=== PATIENT | male | born 1985 | race Caucasian/White ===

== ENCOUNTER 2016-09-29 17:17 | Emergency (ER) | payer SELFPAY ==
[~2016-09-29] VITALS: Ht 175.3 cm; Wt 54.4 kg
[2016-09-29] MEDS ORDERED: GUAI600T43 PO (17:38)
--- NOTE | 2016-09-29 17:53 | ED General ---
General Chief Complaint: Cough/Cold/Flu Symptoms Stated Complaint: PRODUCTIVE COUGH/BURNING IN CHEST Nursing Triage Note: Pt. advised he has been expriencing a cough/congestion since thursday that has become progressively worse. He advises he has been coughing up yellow sputum. Nursing Sepsis Screen: No Definite Risk Source of Information: Patient Exam Limitations: No Limitations History of Present Illness Time Seen by Provider: 17:21 Initial Comments This 31-year-old gentleman presents to the emergency room with complaints of chest congestion, chest burning, productive cough, and chills without fever. He did not receive an influenza immunization this year. Symptoms have been present for 4 days. He also has a right earache. Allergies and Home Medications Allergies Coded Allergies: latex (Unverified Allergy, Intermediate, 09/29/16) Uncoded Allergies: APPLES (Allergy, Intermediate, 09/29/16) Home Medications Albuterol Sulfate 8.5 Gm Hfa.aer.ad #1 1-4 PUFF IH Q4H PRN PRN SHORTNESS OF BREATH Prescribed by: PADMA PACK on 09/29/16 180 Azithromycin 250 Mg Tablet #6 250 MG PO UD TAKE 2 TABLETS ON DAY ONE THEN TAKE 1 TABLET DAILY FOR FOUR MORE DAYS Prescribed by: PADMA PACK on 09/29/16 180 Guaifenesin 600 Mg Tab.er.12h 600 MG PO (Reported) Prednisone 20 Mg Tab #4 20 MG PO DAILY Prescribed by: PADMA PACK on 09/29/16 180 Constitutional: see HPI EENTM: see HPI Respiratory: see HPI Cardiovascular: no symptoms reported Gastrointestinal: no symptoms reported Genitourinary: no symptoms reported Musculoskeletal: no symptoms reported Skin: no symptoms reported Psychiatric/Neurological: No Symptoms Reported Hematologic/Lymphatic: No Symptoms Reported Past Nrehdga-Bsuyfq-[place] Hx Patient Social History Smoking Status: Never a Smoker Recent Foreign Travel: No Contact w/Someone Who Travel: No Recent Infectious Disease Expo: Yes (advises his neighbor has been ill) Recent Hopitalizations: No Immunizations Up To Date PED Vaccines UTD: Yes Seasonal Allergies Seasonal Allergies: Yes Surgeries HX Surgeries: Yes (lymph glands in groin and neck removed) Surgeries: Tonsillectomy Respiratory Hx Respiratory Disorders: No Cardiovascular Hx Cardiac Disorders: No Neurological Hx Neurological Disorders: No Reproductive System Hx Reproductive Disorders: No Genitourinary Hx Genitourinary Disorders: No Gastrointestinal Hx Gastrointestinal Disorders: No Musculoskeletal Hx Musculoskeletal Disorders: No Endocrine Hx Endocrine Disorders: No HEENT HX ENT Disorders: No Cancer Hx Cancer: No Psychosocial Hx Psychiatric Problems: No Integumentary HX Skin/Integumentary Disorder: No Family Medical History Significant Family History: No Pertinent Family Hx Physical Exam Vital Signs Vital Sign - Last 12Hours 09/29/16 17:34 Temp 97.7 Pulse 68 Resp 12 B/P 112/73 Pulse Ox 99 O2 Delivery Room Air Capillary Refill : Less Than 3 Seconds General Appearance: No Apparent Distress WD/WN HEENT: PERRL/EOMI Normal ENT Inspection Pharynx Normal TM Abnormal (R) ( erythema) Neck: Normal Inspection Respiratory: Lungs Clear Normal Breath Sounds No Accessory Muscle Use No Respiratory Distress Other (delayed forced expiration) Cardiovascular: Regular Rate, Rhythm No Edema No Murmur Gastrointestinal: Normal Bowel Sounds Non Tender Soft Extremity: Normal Inspection Neurologic/Psychiatric: Alert Oriented x3 No Motor/Sensory Deficits 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 See report below: NAME: LEONARDO ROSS [facility] REC#: [id number] PT STATUS: REG ER : 1985 PHYSICIAN: PADMA SANTOS MD ADMIT DATE: 09/29/16/ER Draft Date of Exam:09/29/16 CHEST PA/LAT (2 VIEW) Indication: Febrile with cough. Comparison with 02/19/2016. Findings: PA and lateral views show the lungs to be well-aerated. No infiltrates have developed. The heart is not enlarged. No evidence of hilar adenopathy. The pulmonary vasculature is normal. No evidence of pneumothorax or pleural effusion. Impression: Normal PA and lateral chest. Dictated on workstation # [id number] Dict: 09/29/16 1743 Trans: 09/29/16 1808 [facility] [phone] Interpreted by: RUBEN LEYVA MD Departure Impression Impression: Primary Impression: Acute bronchitis Qualified Code: J20.9 - Acute bronchitis, unspecified Additional Impressions: Right otitis media Qualified Code: H66.001 - Acute suppurative otitis media without spontaneous rupture of ear drum, right ear Atypical chest pain Disposition: 01 HOME, SELF-CARE Condition: Improved Departure-Patient Inst. Decision time for Depature: 17:50 Referrals: KATERIN ONEILL MD (PCP/Family) Primary Care Physician Patient Instructions: Acute Bronchitis, Adult (DC), Ear Infections (Otitis Media) Add. Discharge Instructions: You may take ibuprofen up to 600 mg every 6 hours as needed for pain. For bronchitis you may use your inhaler as prescribed. Also use the prednisone (steroid) as prescribed. Prednisone should help with both pain and shortness of air. Complete your antibiotics as prescribed. Return to care if symptoms worsen. All discharge instructions reviewed with patient and/or family. Voiced understanding. Scripts Albuterol Sulfate (Proair Hfa)8.5 Gm Hfa.aer.ad1-4 Puff IH Q4H PRN SHORTNESS OF BREATH #1 INH Prov:PADMA SANTOS MD 09/29/16 Prednisone 20 Mg Tab20 Mg PO DAILY #4 TAB Prov:PADMA SANTOS MD 09/29/16 Azithromycin 250 Mg [id number] Mg PO UD #6 TAB TAKE 2 TABLETS ON DAY ONE THEN TAKE 1 TABLET DAILY FOR FOUR MORE DAYS Prov:PADMA SANTOS MD 09/29/16 PADMA SANTOS MD Sep 29, 2016 17:53 Primary Care Physician Patient Instructions: Acute Bronchitis, Adult (DC), Ear Infections (Otitis Media) Add. Discharge Instructions: You may take ibuprofen up to 600 mg every 6 hours as needed for pain. For bronchitis you may use your inhaler as prescribed. Also use the prednisone (steroid) as prescribed. Prednisone should help with both pain and shortness of air. Complete your antibiotics as prescribed. Return to care if symptoms worsen. All discharge instructions reviewed with patient and/or family. Voiced understanding. Scripts Albuterol Sulfate (Proair Hfa)8.5 Gm Hfa.aer.ad1-4 Puff IH Q4H PRN SHORTNESS OF BREATH #1 INH Prov:PADMA SANTOS MD 09/29/16 Prednisone 20 Mg Tab20 Mg PO DAILY #4 TAB Prov:PADMA SANTOS MD 09/29/16 Azithromycin 250 Mg [id number] Mg PO UD #6 TAB TAKE 2 TABLETS ON DAY ONE THEN TAKE 1 TABLET DAILY FOR FOUR MORE DAYS Prov:PADMA SANTOS MD 09/29/16 PADMA SANTOS MD Sep 29, 2016 17:53
--- NOTE | 2016-09-29 18:03 | Diagnostic Imaging Report ---
Indication: Febrile with cough. Comparison with 02/19/2016. Findings: PA and lateral views show the lungs to be well-aerated. No infiltrates have developed. The heart is not enlarged. No evidence of hilar adenopathy. The pulmonary vasculature is normal. No evidence of pneumothorax or pleural effusion. Impression: Normal PA and lateral chest. Dictated by: Dictated on workstation # [id number]
[2016-09-29] MEDS ORDERED: RT-ALBUINH IH (18:04)
[2016-09-29] MEDS ORDERED: AZIT250T5 PO (18:04)
[2016-09-29] MEDS ORDERED: PRD20T PO (18:04)
[2016-09-29 18:19] VITALS: BP 112/63
== END 2016-09-29 18:25 | disposition home or self-care (01) ==
LOC: EDUNIT# 17:17 → ER 17:19
DX: J20.9 Acute bronchitis, unspecified (principal); H66.91 Otitis media, unspecified, right ear; R07.89 Other chest pain
CPT/HCPCS: 71020; 87804

== ENCOUNTER 2020-06-19 00:30 | Emergency (ER) | payer SELFPAY ==
[~2020-06-19] VITALS: Ht 175 cm; Wt 61.0 kg
[~2020-06-19 00:30] MED LIST: AZIT250T12 PO; GUAI600T43 PO; PRD20T PO; RT-ALBUINH IH
[2020-06-19 00:48] VITALS: BP 124/84
[2020-06-19] MEDS ORDERED: AMOXICILLIN 500 MG (POLYMOX) CAP PO STA (00:58)
[2020-06-19] MEDS ORDERED: RX-HYDROCODONE/APAP 5/325 MG #4 TAB PK PO PRN (01:00)
[2020-06-19] MEDS ORDERED: AMOX500C2 PO (01:03)
[2020-06-19] MEDS ORDERED: HYDR-4226 PO (01:03)
--- NOTE | 2020-06-19 01:04 | ED EENT ---
History of Present Illness General Chief Complaint: Dental Problems/Pain Stated Complaint: DENTAL PAIN Nursing Triage Note: TO ED VIA POV WITH C/O RIGHT SIDE LOWER DENTAL/MOUTH PAIN R/T WISDOM TEETH IMPACTION. Source: patient Exam Limitations: no limitations History of Present Illness Date Seen by Provider: Jun 19, 2020 Time Seen by Provider: 00:53 Initial Comments Here with report of right lower posterior dental pain were he has wisdom tooth impacting on the second molar. The second molar is significantly decayed below the gumline. Reports that he is trying to get in with a dentist to get it removed. Also has dental problems in the other side but that is not painful currently. Denies fevers, vomiting or difficulty swallowing. States not better with Anbesol mouthwash and khcf-fkt-[id number] medications including aspirin, Tylenol and ibuprofen. Timing/Duration: gradual, last week Severity: moderate Location: dental Prearrival Treatment: over the counter meds Associated Symptoms: No facial pain/swelling, No fever, No sore throat; tooth pain Allergies and Home Medications Allergies Coded Allergies: latex (Unverified Allergy, Intermediate, 09/29/16) Uncoded Allergies: APPLES (Allergy, Intermediate, 09/29/16) Home Medications Albuterol Sulfate 8.5 Gm Hfa.aer.ad, 1-4 PUFF IH Q4H PRN for SHORTNESS OF BREATH Prescribed by: PADMA PACK on 09/29/161803 Amoxicillin 500 Mg Capsule, 500 MG PO TID Prescribed by: JONES HILARIO on 06/19/20102 Azithromycin 250 Mg Tablet, 250 MG PO UD TAKE 2 TABLETS ON DAY ONE THEN TAKE 1 TABLET DAILY FOR FOUR MORE DAYS Prescribed by: PADMA PACK on 09/29/161803 Hydrocodone/Acetaminophen 1 Each Tablet, 1 TAB PO Q6H Prescribed by: JONES HILARIO on 06/19/20103 Prednisone 20 Mg Tab, 20 MG PO DAILY Prescribed by: PADMA PACK on 09/29/161803 Patient Home Medication List Home Medication List Reviewed: Yes Review of Systems Review of Systems Constitutional: see HPI; No chills, No fever Mouth: see HPI, pain, swelling Throat: denies pain, denies swelling, denies painful swallowing Respiratory: No cough, No short of breath Cardiovascular: no symptoms reported Past Otelyst-Xwymqx-Sgolyr Hx Past Med/Social Hx: Reviewed Nursing Past Med/Soc Hx Patient Social History Alcohol Use: Denies Use Recreational Drug Use: No Smoking Status: Never a Smoker Recent Foreign Travel: No Contact w/Someone Who Travel: No Recent Infectious Disease Expo: No Recent Hopitalizations: No Physical Abuse: No Sexual Abuse: No Mistreated: No Fear: No Immunizations Up To Date PED Vaccines UTD: Yes Seasonal Allergies Seasonal Allergies: Yes Past Medical History Surgeries: Yes (lymph glands in groin and neck removed) Tonsillectomy Respiratory: No Cardiac: No Neurological: No Reproductive Disorders: No Gastrointestinal: No Musculoskeletal: No Endocrine: No Cancer: No Psychosocial: No Integumentary: No Family Medical History Reviewed Nursing Family Hx No Pertinent Family Hx Physical Exam Vital Signs Vital Signs - First Documented 06/19/20 00:48 Temp 36.4 Pulse 81 Resp 16 B/P (MAP) 124/84 (97) O2 Delivery Room Air Height, Weight, BMI Height: 5'9" Weight: 120lbs. oz. 54.379298cm; 19.00 BMI Method:Stated General Appearance: WD/WN, no apparent distress Mouth/Throat: dental tenderness, other (wisdom tooth posterior right growing and horizontal with significant decay of the posterior molar below the gumline with surrounding erythema and inflammation. No obvious abscess but suspected infection around that tooth.) Neck: full range of motion, supple Cardiovascular: regular rate, rhythm, no murmur Respiratory: lungs clear, normal breath sounds Neurologic/Psychiatric: alert, oriented x 3 Skin: normal color, warm/dry Progress/Results/Core Measures Results/Orders My Orders Orders - JONES HILARIO MD Amoxicillin Capsule (Polymox Capsule) (06/19/20 00:58) Rx-Hydrocodone/Apap 5-325 Mg (Rx-Vicodin (06/19/20 01:00) Vital Signs/I&O 06/19/20 00:48 Temp 36.4 Pulse 81 Resp 16 B/P (MAP) 124/84 (97) O2 Delivery Room Air Blood Pressure Mean: 97 Progress Progress Note : Progress Note Seen and evaluated. Amoxicillin 1000 mg by mouth. Hydrocodone go pack given. Discharged home with return precautions. Patient verbalize understanding instructions and agreement with plan. Departure Impression Primary Impression: Dental caries Disposition: HOME, SELF-CARE Condition: Stable Departure-Patient Inst. Decision time for Depature: 01:01 Referrals: NO,LOCAL PHYSICIAN (PCP/Family) Primary Care Physician Patient Instructions: Impacted Tooth (DC), Tooth Decay, Adult (DC) Add. Discharge Instructions: All discharge instructions reviewed with patient and/or family. Voiced understanding. Continue to brush your teeth twice daily. You may rinse mouth with salt water 2 or 3 times daily. You may use the Anbesol mouthwash per package directions. Take medications as directed. You may take ibuprofen 600 mg every 8 hours as needed for pain. If you're not taking the prescribed pain medicine, you may take Tylenol/acetaminophen 1000 mg every 8 hours as needed for pain. Do not take with the prescribed pain medicine as they both have acetaminophen in them. It is very important that you follow-up with a dentist as soon as possible as this tooth needs to be removed. Scripts Hydrocodone/Acetaminophen (Hydrocodone/Acetaminophen 5 MG/325 MG TAB) 1 Each Tablet 1 TAB PO Q6H for Pain MDD 10 TABS for 7 Days, #12 TAB 0 Refills Prov: JONES HILARIO MD 06/19/20 Amoxicillin (Amoxicillin) 500 Mg Capsule 500 MG PO TID, #30 CAP 0 Refills Prov: JONES HILARIO MD 06/19/20 JONES HILARIO MD Jun 19, 2020 01:04
== END 2020-06-19 01:09 | disposition home or self-care (01) ==
LOC: EDUNIT# 00:30 → ER 00:35
DX: K02.9 Dental caries, unspecified (principal); Z79.52 Long term (current) use of systemic steroids; Z91.040 Latex allergy status
CPT/HCPCS: 99283